=== PATIENT | male | born 1995 | race Caucasian/White ===

== ENCOUNTER 2016-12-15 06:59 | Emergency (ER) | payer OTHER ==
--- NOTE | 2016-12-15 07:36 | ED NURSING NOTES ---
Clinical Report - Nurses [facility] [address] [place] [address] 12/15/2016 7:00 [id number] Triage time 07:Dec 15 2016. Acuity: LEVEL 4. Chief Complaint: (Having panick attacks x 3-4 days). 07:11 12/15/16. SEPSIS SCREEN: Sepsis Screen. Negative (no infection suspected/documented). ERICKA COMA SCORE: Ericka Coma Scale: 15- eyes open spontaneously (4); best verbal response- oriented x 4 (5); best motor response- obeys commands (6). --07:11 Rosa Fenton R.N. 07:06 12/15/16. BP: 155/80 (regular adult cuff) taken on the left arm. HR: 71. RR: 18. O2 saturation: 100% on room air. Temp: 97.8 F (oral). Pain level now: 0/10. --07:11 Rosa Fenton R.N. Weight: 70.3 kg stated. Height/Length: 68 inches Per Patient. BMI: 23.6. --07:11 Rosa Fenton R.N. Medications None. --07:07 Rosa Fenton R.N. Allergies No Known Drug Allergy. --07:07 Rosa Fenton R.N. History Arrived by private vehicle. Historian: patient. Accompanied by family. Onset. (3-4 days with nausea and diarrhea). He has had difficulty breathing. ( diaphoresis, SOB, diarrhea, N/V with panic attacks. Patient has had a couple panic attacks in life.). 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 SOCIAL HX: Never smoker. Occasional alcohol use. History of heavy drug use: marijuana. Recently used drugs days ago. No infectious disease exposure. ABUSE ASSESSMENT: No report of abuse. SELF HARM ASSESSMENT: A self harm assessment was performed. The patient answered "no" to the question "Have you recently felt down, depressed, or hopeless?", "Have you noticed less interest or pleasure in doing things?", "Do you have thoughts of harming or killing yourself?", "Are you here because you tried to hurt yourself?", "Have you ever tried to hurt yourself before today?" and "Have you recently had thoughts about harming or killing others?". --07:11 Rosa Fenton R.N. PROBLEMS: Bronchitis. Sinusitis. --07:07 Rosa Fenton R.N. ADDITIONAL SURGERIES: no known surgeries. Interventions ID band on patient. To treatment room. --07:11 Rosa Fenton R.N. PHYSICAL ASSESSMENT 07:12 12/15/16. Ambulatory to room. Patient gowned. GENERAL / NEURO / PSYCH: Alert. Oriented X 4. Appears anxious. HEENT: Pupils equal, round and reactive to light. No facial asymmetry noted. Mucous membranes are pink. RESPIRATORY: Respirations not labored. Chest nontender. Breath sounds within normal limits. CVS: Capillary refill less than 2 seconds. Pulses within normal limits. GI / : Abdomen soft and nontender and normal bowel sounds. SKIN: Skin intact. Skin is warm. Normal skin turgor. --07:12 Rosa Fenton R.N. NURSING PROGRESS NOTES 07:13 12/15/16. The plan of care for this patient has been created. Patient gowned. Head of bed elevated. Reassurance given. Two patient identifiers checked. Call light placed in reach. Side rails up x 1. Bed placed in lowest position. Brakes of bed on. Patient ready for evaluation- chart flagged and ED physician notified. --07:13 Rosa Fenton R.N. Care transferred and report given (Kelly, RN). --07:31 Rosa Fenton R.N. 07:41 12/15/2016 Vistaril (HydrOXYzine Pamoate) PO Tablets 50 mg given. Allergies verified, confirmed 5 rights and sedative warning given to the patient. --08:06 Kelly Rosario R.N. DISPOSITION / DISCHARGE Departure time: 08:18 Dec 15 2016. Condition at departure: improved. No learning barriers present. Discharge instructions provided and reviewed with the patient. Reviewed warnings. Reviewed medication(s). Treatments reviewed. Reviewed referrals. Work note given. Patient verbalized understanding. Written instructions provided in Khmer. The patient was discharged home and accompanied by family. He left the Emergency Department ambulatory and via private vehicle. Family member driving. --08:18 Kelly Rosario R.N. 08:16 12/15/16. BP: 121/74. HR: 85. RR: 18. O2 saturation: 100%. Temp: 98.5 F. Pain level now 0/10. --08:18 Kelly Rosario R.N. Locked/Released at 12/15/2016 16:25 by Kelly Rosario R.N.
--- NOTE | 2016-12-15 07:36 | ED ORDER SUMMARY ---
..... Patient: BRITTANY REYES OrderSheet [facility] VisitID: [id number] [address] [place] [address] 21y, M Registration Date/Time: 12/15/2016 ORDER SHEET Weight: 70.3 kg (stated) Allergies: No Known Drug Allergy GENERAL ORDERS: MEDICATION ORDERS: Vistaril PO 50 mg (NOW) (07:21 12/15/2016 Braulio Funk) (8:06 Celine Roe) IV FLUIDS: ORDER SHEET NOTES: [Electronically signed by Kevin Stover Dr. (09:13 12/15/2016)] [Electronically signed by Kelly Rosario R.N. (16:12/15/2016)] [Electronically locked/signed by Kelly Rosario R.N. (16:12/15/2016)]
--- NOTE | 2016-12-15 07:36 | ED CLINICAL REPORT ---
Clinical Report - Physicians/Mid Levels [facility] [address] [place] [address] 12/15/2016 7:00 [id number] Time Seen: 07:07; initial patient contact. Arrived- By private vehicle. Historian- patient. HISTORY OF PRESENT ILLNESS Chief Complaint: ANXIOUS. This started about 4 days ago. No situational problems or recent drug use or alcohol consumption. He has not exhibited a behavior change or is compliant with medication. The patient has had anxiety. Has not been depressed. No unusual behavior, paranoia, delusions, suicidal thoughts or self-injury inflicted. No hallucinations. The symptoms are described as moderate. No injury is present. Similar symptoms previously: Recent medical care: Not recently seen/assessed. REVIEW OF SYSTEMS No headache, dizziness, chest pain, palpitations or abdominal pain. No vomiting. All systems otherwise negative, except as recorded above. PAST HISTORY ( Bronchitis. Sinusitis). SOCIAL HISTORY Never smoker. Occasional alcohol use. History of drug use: marijuana. Recently used drugs days ago. Has social support. Has place to stay. ADDITIONAL NOTES The nursing notes have been reviewed. PHYSICAL EXAM Vital Signs: 12/15/2016 07:06 BP: 155/80. HR: 71. RR: 18. O2 saturation: 100%. Temp: 97.8 F. Pain level now: 0/10. Have been reviewed. Hypertensive. Heart rate normal. Respiratory rate normal. Temperature normal. Oxygen saturation normal. Appearance: Alert. No acute distress. Appearance is normal. Neck: Normal inspection. CVS: Normal heart rate and rhythm. Heart sounds normal. Respiratory: No respiratory distress. Breath sounds normal. Skin: Skin warm and dry. Psych / Neuro: Oriented X 3. Mood and affect normal. Speech normal. Cognition normal. Thought process and content normal. Insight and judgement normal. PROGRESS AND PROCEDURES Disposition: Discharged home in good and improved condition. Condition: good. CLINICAL IMPRESSION Anxiety reaction. INSTRUCTIONS Do not work today. Avoid stimulants (such as cigarettes, coffee, cold medicines, sinus medicines, street drugs) until better. Your Current Medications: CONTINUE TAKING THE FOLLOWING MEDICATIONS: None*. Prescription Medications: BuSpar 7.5 mg: take 1 tablet every 12 hours. Dispense thirty (30). No refills. Substitution is permissible. Vistaril 50 mg: take 1 orally every 6 hours as needed for anxiety. Dispense twenty (20). No refill. Substitution is permissible. Follow-up: Follow up with your doctor Friday as scheduled. Screening today revealed the patient's blood pressure to be in the hypertensive range. The patient should follow up with a primary care provider for blood pressure management. (Electronically signed by Kevin Stover Dr. 12/15/2016 9:13)
--- NOTE | 2016-12-15 07:36 | ED ORDER SUMMARY ---
..... Patient: BRITTANY REYES OrderSheet [facility] VisitID: [id number] [address] [place] [address] 21y, M Registration Date/Time: 12/15/2016 ORDER SHEET Weight: 70.3 kg (stated) Allergies: No Known Drug Allergy GENERAL ORDERS: MEDICATION ORDERS: Vistaril PO 50 mg (NOW) (07:21 12/15/2016 Braulio Funk) (8:06 Celine Roe) IV FLUIDS: ORDER SHEET NOTES: [Electronically signed by Kevin Stover Dr. (09:13 12/15/2016)] [Electronically signed by Kelly Rosario R.N. (16:12/15/2016)] [Electronically locked/signed by Kelly Rosario R.N. (16:12/15/2016)]
--- NOTE | 2016-12-15 07:36 | ED NURSING NOTES ---
Clinical Report - Nurses [facility] [address] [place] [address] 12/15/2016 7:00 [facility]: [facility] [id number] TRIAGE Triage time 07:Dec 15 2016. Acuity: LEVEL 4. Chief Complaint: (Having panick attacks x 3-4 days). 07:11 12/15/16. SEPSIS SCREEN: Sepsis Screen. Negative (no infection suspected/documented). ERICKA COMA SCORE: Ericka Coma Scale: 15- eyes open spontaneously (4); best verbal response- oriented x 4 (5); best motor response- obeys commands (6). --07:11 Rosa Fenton R.N. 07:06 12/15/16. BP: 155/80 (regular adult cuff) taken on the left arm. HR: 71. RR: 18. O2 saturation: 100% on room air. Temp: 97.8 F (oral). Pain level now: 0/10. --07:11 Rosa Fenton R.N. Weight: 70.3 kg stated. Height/Length: 68 inches Per Patient. BMI: 23.6. --07:11 Rosa Fenton R.N. Medications None. --07:07 Rosa Fenton R.N. Allergies No Known Drug Allergy. --07:07 Rosa Fenton R.N. History Arrived by private vehicle. Historian: patient. Accompanied by family. Onset. (3-4 days with nausea and diarrhea). He has had difficulty breathing. ( diaphoresis, SOB, diarrhea, N/V with panic attacks. Patient has had a couple panic attacks in life.). 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 SOCIAL HX: Never smoker. Occasional alcohol use. History of heavy drug use: marijuana. Recently used drugs days ago. No infectious disease exposure. ABUSE ASSESSMENT: No report of abuse. SELF HARM ASSESSMENT: A self harm assessment was performed. The patient answered "no" to the question "Have you recently felt down, depressed, or hopeless?", "Have you noticed less interest or pleasure in doing things?", "Do you have thoughts of harming or killing yourself?", "Are you here because you tried to hurt yourself?", "Have you ever tried to hurt yourself before today?" and "Have you recently had thoughts about harming or killing others?". --07:11 Rosa Fenton R.N. PROBLEMS: Bronchitis. Sinusitis. --07:07 Rosa Fenton R.N. ADDITIONAL SURGERIES: no known surgeries. Interventions ID band on patient. To treatment room. --07:11 Rosa Fenton R.N. PHYSICAL ASSESSMENT 07:12 12/15/16. Ambulatory to room. Patient gowned. GENERAL / NEURO / PSYCH: Alert. Oriented X 4. Appears anxious. HEENT: Pupils equal, round and reactive to light. No facial asymmetry noted. Mucous membranes are pink. RESPIRATORY: Respirations not labored. Chest nontender. Breath sounds within normal limits. CVS: Capillary refill less than 2 seconds. Pulses within normal limits. GI / : Abdomen soft and nontender and normal bowel sounds. SKIN: Skin intact. Skin is warm. Normal skin turgor. --07:12 Rosa Fenton R.N. NURSING PROGRESS NOTES 07:13 12/15/16. The plan of care for this patient has been created. Patient gowned. Head of bed elevated. Reassurance given. Two patient identifiers checked. Call light placed in reach. Side rails up x 1. Bed placed in lowest position. Brakes of bed on. Patient ready for evaluation- chart flagged and ED physician notified. --07:13 Rosa Fenton R.N. Care transferred and report given (Kelly, RN). --07:31 Rosa Fenton R.N. 07:41 12/15/2016 Vistaril (HydrOXYzine Pamoate) PO Tablets 50 mg given. Allergies verified, confirmed 5 rights and sedative warning given to the patient. --08:06 Kelly Rosario R.N. DISPOSITION / DISCHARGE Departure time: 08:18 Dec 15 2016. Condition at departure: improved. No learning barriers present. Discharge instructions provided and reviewed with the patient. Reviewed warnings. Reviewed medication(s). Treatments reviewed. Reviewed referrals. Work note given. Patient verbalized understanding. Written instructions provided in Malay. The patient was discharged home and accompanied by family. He left the Emergency Department ambulatory and via private vehicle. Family member driving. --08:18 Kelly Rosario R.N. 08:16 12/15/16. BP: 121/74. HR: 85. RR: 18. O2 saturation: 100%. Temp: 98.5 F. Pain level now 0/10. --08:18 Kelly Rosario R.N. Locked/Released at 12/15/2016 16:25 by Kelly Rosario R.N.
--- NOTE | 2016-12-15 07:36 | ED CLINICAL REPORT ---
Clinical Report - Physicians/Mid Levels [facility] [address] [place] [address] 12/15/2016 7:00 [id number] Time Seen: 07:07; initial patient contact. Arrived- By private vehicle. Historian- patient. HISTORY OF PRESENT ILLNESS Chief Complaint: ANXIOUS. This started about 4 days ago. No situational problems or recent drug use or alcohol consumption. He has not exhibited a behavior change or is compliant with medication. The patient has had anxiety. Has not been depressed. No unusual behavior, paranoia, delusions, suicidal thoughts or self-injury inflicted. No hallucinations. The symptoms are described as moderate. No injury is present. Similar symptoms previously: Recent medical care: Not recently seen/assessed. REVIEW OF SYSTEMS No headache, dizziness, chest pain, palpitations or abdominal pain. No vomiting. All systems otherwise negative, except as recorded above. PAST HISTORY ( Bronchitis. Sinusitis). SOCIAL HISTORY Never smoker. Occasional alcohol use. History of drug use: marijuana. Recently used drugs days ago. Has social support. Has place to stay. ADDITIONAL NOTES The nursing notes have been reviewed. PHYSICAL EXAM Vital Signs: 12/15/2016 07:06 BP: 155/80. HR: 71. RR: 18. O2 saturation: 100%. Temp: 97.8 F. Pain level now: 0/10. Have been reviewed. Hypertensive. Heart rate normal. Respiratory rate normal. Temperature normal. Oxygen saturation normal. Appearance: Alert. No acute distress. Appearance is normal. Neck: Normal inspection. CVS: Normal heart rate and rhythm. Heart sounds normal. Respiratory: No respiratory distress. Breath sounds normal. Skin: Skin warm and dry. Psych / Neuro: Oriented X 3. Mood and affect normal. Speech normal. Cognition normal. Thought process and content normal. Insight and judgement normal. PROGRESS AND PROCEDURES Disposition: Discharged home in good and improved condition. Condition: good. CLINICAL IMPRESSION Anxiety reaction. INSTRUCTIONS Do not work today. Avoid stimulants (such as cigarettes, coffee, cold medicines, sinus medicines, street drugs) until better. Your Current Medications: CONTINUE TAKING THE FOLLOWING MEDICATIONS: None*. Prescription Medications: BuSpar 7.5 mg: take 1 tablet every 12 hours. Dispense thirty (30). No refills. Substitution is permissible. Vistaril 50 mg: take 1 orally every 6 hours as needed for anxiety. Dispense twenty (20). No refill. Substitution is permissible. Follow-up: Follow up with your doctor Friday as scheduled. Screening today revealed the patient's blood pressure to be in the hypertensive range. The patient should follow up with a primary care provider for blood pressure management. (Electronically signed by Kevin Stover Dr. 12/15/2016 9:13)
--- NOTE | 2016-12-15 16:25 | ED MAR SUMMARY ---
..... Medication Administration [facility] [address] [place] [place] [address] Patient: BRITTANY REYES Visit ID: [id number] 21y, M Weight: 70.3 kg Height/Length: 68 in BMI: 23.6 ALLERGIES: No Known Drug Allergy Given 07:41 12/15/2016 Kelly Rosario RDeweyNDewey Medication Administered: VISTARIL [PO] (HYDROXYZINE PAMOATE), Dose: 50 mg Tablets PO. Medication Ordered: Vistaril PO 50 mg (NOW).
--- NOTE | 2016-12-15 16:25 | ED MED RECONCILIATION SUMMARY ---
Patient: BRITTANY REYES Medication Reconciliation Report [facility] VisitID: [id number] [address] [place] [address] 21y, M Registration Date/Time: 12/15/2016 Weight: 70.3 kg Height/Length: 68 in. BMI: 23.6 ALLERGIES: No Known Drug Allergy The patient's Home Medications are listed below: NONE. The source(s) of the original Home Medication information: Not obtained. The following Medications were given to the patient in the Emergency Department: Vistaril [PO] PO 50 mg, administered: 12/15/2016 7:41:00 AM The following Medications were prescribed to the patient: BuSpar 7.5 mg: take 1 tablet every 12 hours. Dispense thirty (30). No refills. Substitution is permissible. -- Kevin Stover Dr. Vistaril 50 mg: take 1 orally every 6 hours as needed for anxiety. Dispense twenty (20). No refill. Substitution is permissible. -- Kevin Stover Dr.
--- NOTE | 2016-12-15 16:25 | ED DISCHARGE INSTRUCTIONS ---
Patient: BRITTANY REYES General Instructions [facility] VisitID: [id number] [place] [address] 21y, M Registration Date/Time: 12/15/2016 Anxiety reaction. INSTRUCTIONS Do not work today. Avoid stimulants (such as cigarettes, coffee, cold medicines, sinus medicines, street drugs) until better. Your Current Medications: CONTINUE TAKING THE FOLLOWING MEDICATIONS: None*. Prescription Medications: BuSpar 7.5 mg: take 1 tablet every 12 hours. Dispense thirty (30). No refills. Substitution is permissible. Vistaril 50 mg: take 1 orally every 6 hours as needed for anxiety. Dispense twenty (20). No refill. Substitution is permissible. Follow-up: Follow up with your doctor Friday as scheduled. Screening today revealed the patient's blood pressure to be in the hypertensive range. The patient should follow up with a primary care provider for blood pressure management. ADDITIONAL INFORMATION Stress Reaction Anxiety is the feeling we all get when we think something bad might happen. It is a normal response to stress and usually causes only a mild reaction. When anxiety becomes more severe, emotions may interfere with daily life. In some cases, you may not even be aware of what it is youre anxious about! During an anxiety reaction, you may feel like you are helpless, nervous, depressed or irritable. Your body may show signs of anxiety in many ways. You may experience dry mouth, shakiness, dizziness, weakness, trouble breathing, chest pressure, headache, nausea, diarrhea, tiredness, inability to sleep or sexual problems. Home Care: 1) Try to locate the sources of stress in your life. They may not be obvious! These may include: -- Daily hassles of life which pile up (traffic jams, missed appointments, car troubles, etc.) -- Major life changes, both good (new baby, job promotion) and bad (loss of job, loss of loved one) -- Overload: feeling that you have too many responsibilities and can't take care of all of them at once -- Feeling helpless, feeling that your problems are beyond what youre able to solve 2) Notice how your body reacts to stress. Learn to listen to your body signals. This will help you take action before the stress becomes severe. 3) When you can, do something about the source of your stress. (Avoid hassles, limit the amount of change that happens in your life at one time and take a break when you feel overloaded). 4) Unfortunately, many stressful situations cannot be avoided. It is necessary to learn HOW TO MANAGE STRESS better. There are many proven methods that will reduce your anxiety. These include simple things like exercise, good nutrition and adequate rest. Also, there are certain techniques that are helpful: relaxation and breathing exercises, visualization, biofeedback and meditation. For more information about this, consult your doctor or go to a local bookstore and review the many books and tapes available on this subject. Follow Up If you feel that your anxiety is not responding to self-help measures, contact your doctor or make an appointment with a counselor. Get Prompt Medical Attention if any of the following occur: -- Your symptoms get worse -- Chest pain or trouble breathing -- Severe headache not relieved by rest and mild pain reliever -- Rapid or irregular heartbeat, fainting Hydroxyzine Pamoate Oral capsule What is this medicine? HYDROXYZINE (garo DROX i zeen) is an antihistamine. This medicine is used to treat allergy symptoms. It is also used to treat anxiety and tension. This medicine can be used with other medicines to induce sleep before surgery. How should I use this medicine? Take this medicine by mouth with a full glass of water. Follow the directions on the prescription label. You may take this medicine with food or on an empty stomach. Take your medicine at regular intervals. Do not take your medicine more often than directed. Talk to your manager photo regarding the use of this medicine in children. Special care may be needed. While this drug may be prescribed for children as young as 6 years of age for selected conditions, precautions do apply. Patients over 65 years old may have a stronger reaction and need a smaller dose. What side effects may I notice from receiving this medicine? Side effects that you should report to your doctor or health child care centre manager as soon as possible: fast or irregular heartbeat difficulty passing urine seizures slurred speech or confusion tremor Side effects that usually do not require medical attention (report to your doctor or health child care centre manager if they continue or are bothersome): constipation drowsiness fatigue headache stomach upset What may interact with this medicine? alcohol barbiturate medicines for sleep or seizures medicines for colds, allergies medicines for depression, anxiety, or emotional disturbances medicines for pain medicines for sleep muscle relaxants What if I miss a dose? If you miss a dose, take it as soon as you can. If it is almost time for your next dose, take only that dose. Do not take double or extra doses. Where should I keep my medicine? Keep out of the reach of children. Store at room temperature between 15 and 30 degrees C (59 and 86 degrees F). Keep container tightly closed. Throw away any unused medicine after the expiration date. What should I tell my health care provider before I take this medicine? They need to know if you have any of these conditions: any chronic illness difficulty passing urine glaucoma heart disease kidney disease liver disease lung disease an unusual or allergic reaction to hydroxyzine, cetirizine, other medicines, foods, dyes, or preservatives or trying to get breast-feeding What should I watch for while using this medicine? Tell your doctor or health child care centre manager if your symptoms do not improve. You may get drowsy or dizzy. Do not drive, use machinery, or do anything that needs mental alertness until you know how this medicine affects you. Do not stand or sit up quickly, especially if you are an older patient. This reduces the risk of dizzy or fainting spells. Alcohol may interfere with the effect of this medicine. Avoid alcoholic drinks. Your mouth may get dry. Chewing sugarless gum or sucking hard candy, and drinking plenty of water may help. Contact your doctor if the problem does not go away or is severe. This medicine may cause dry eyes and blurred vision. If you wear contact lenses you may feel some discomfort. Lubricating drops may help. See your eye doctor if the problem does not go away or is severe. If you are receiving skin tests for allergies, tell your doctor you are using this medicine. You have been given the following additional information: Anxiety Reaction Hydroxyzine Pamoate Oral capsule Do not work today. (Electronically signed by Kevin Stover Dr. 12/15/2016 9:13)
--- NOTE | 2016-12-15 16:25 | ED MED RECONCILIATION SUMMARY ---
Patient: BRITTANY REYES Medication Reconciliation Report [facility] VisitID: [id number] [address] [place] [address] 21y, M Registration Date/Time: 12/15/2016 Weight: 70.3 kg Height/Length: 68 in. BMI: 23.6 ALLERGIES: No Known Drug Allergy The patient's Home Medications are listed below: NONE. The source(s) of the original Home Medication information: Not obtained. The following Medications were given to the patient in the Emergency Department: Vistaril [PO] PO 50 mg, administered: 12/15/2016 7:41:00 AM The following Medications were prescribed to the patient: BuSpar 7.5 mg: take 1 tablet every 12 hours. Dispense thirty (30). No refills. Substitution is permissible. -- Kevin Stover Dr. Vistaril 50 mg: take 1 orally every 6 hours as needed for anxiety. Dispense twenty (20). No refill. Substitution is permissible. -- Kevin Stover Dr.
--- NOTE | 2016-12-15 16:25 | ED MAR SUMMARY ---
..... Medication Administration Record [facility] [address] [place] [address] Patient: BRITTANY REYES Visit ID: [id number] 21y, M Weight: 70.3 kg Height/Length: 68 in BMI: 23.6 ALLERGIES: No Known Drug Allergy Given 07:41 12/15/2016 Kelly Rosario RDeweyNDewey Medication Administered: VISTARIL [PO] (HYDROXYZINE PAMOATE), Dose: 50 mg Tablets PO. Medication Ordered: Vistaril PO 50 mg (NOW).
== END 2016-12-15 08:15 | disposition home or self-care (01) ==
LOC: ED SRH 06:59
DX: F41.1 Generalized anxiety disorder (principal)